=== PATIENT | female | born 1990 | race Caucasian/White ===

== ENCOUNTER → 2020-06-07 02:23 | Observation (INO) | END | disposition home or self-care (01) | LOC: 1NENULAB | PROVIDERS: ADMIT Obstetrics & Gynecology; ATTEND Obstetrics & Gynecology ==

== ENCOUNTER → 2020-06-10 12:40 | Observation (INO) ==
[2020-06-10] MEDS: Ringers Solution, Lactated 1,000 ML IVC ONE ×2 (08:50→11:05)
[~2020-06-10 12:40] MED LIST: *HR* Nalbuphine 10 MG/ML AMPUL IM PRN; *HR* Promethazine 25 MG/ML VIAL IM ONE; Ringers Solution, Lactated 1,000 ML ONE; Terconazole Vag CRM 20 GM TUBE VG SCH
== END | disposition home or self-care (01) ==
LOC: 1NENULAB
PROVIDERS: ADMIT Advanced Practice Midwife; ATTEND Advanced Practice Midwife

== ENCOUNTER 2020-06-10 19:45 | Inpatient (IN) ==
[~2020-06-10 19:45] MED LIST changes: -*HR* Nalbuphine 10 MG/ML AMPUL IM PRN; +*HR* Nalbuphine 10 MG/ML AMPUL IV PRN; -*HR* Promethazine 25 MG/ML VIAL IM ONE; +Azithromycin 500 MG in 0.9 % Sodium Chloride 250 ML IVPB ONE; +Famotidine 20 MG/2 ML VIAL IVP PRN; +Lidocaine 1% 20 ML MDV INFILT PRN; +Metoclopramide 10 MG/2 ML VIAL IVP PRN; +Naloxone 0.4 MG/ML INJ IVP PRN; +Ondansetron 4 MG/2 ML VIAL IVP PRN; +Ringers Solution, Lactated 1,000 ML IVC SCH; -Ringers Solution, Lactated 1,000 ML ONE; -Terconazole Vag CRM 20 GM TUBE VG SCH
[2020-06-10 21:10] LABS: Basophils # 0.1 K/mcL (0.0-0.2); Basophils % 0.3 %; Eosinophils % 0.1 %; Hematocrit 39.5 % (35.3-44.9); Hemoglobin 13.3 g/dL (11.5-15.4); Immature Granulocytes % 0.4 % (0-4); Lymphocytes # 2.9 K/mcL (0.6-4.6); Lymphocytes % 14.3 %; Mean Corpuscular HGB Conc 33.7 g/dL (31.6-35.5); Mean Corpuscular Hemoglobin 30.9 pg (28.0-33.3); Mean Corpuscular Volume 91.9 fL (83.0-100.0); Mean Platelet Volume 10.9 fL (9.4-12.4); Monocytes # 1.7 K/mcL (0.0-1.3); Monocytes % 8.6 %; Neutrophils # 15.3 K/mcL (1.6-8.9); Platelet Count 309 K/mcL (140-400); Red Cell Distribution Width 13.8 % (11.5-14.5); Segmented Neutrophils % 76.3 %
[2020-06-10 21:15] LABS: Amphetamine Screen,Urine Negative ng/mL (Cutoff=1000); Barbiturate Screen,Urine Negative ng/mL (Cutoff=200); Benzodiazepines Screen,Urine Negative ng/mL (Cutoff=200); Cannabinoid Screen,Urine Negative ng/mL (Cutoff = 50); Cocaine Screen,Urine Negative ng/mL (Cutoff= 300); Opiate Screen,Urine Negative ng/mL (Cutoff=300); Phencyclidine Screen,Urine Negative ng/mL (Cutoff=25)
[2020-06-10 22:06] LABS: Adenovirus Not Detected (Not Detect); Bordetella Pertussis Not Detected (Not Detect); Chlamydophila pneumoniae Not Detected (Not Detect); Coronavirus 229E Not Detected (Not Detect); Coronavirus HKU1 Not Detected (Not Detect); Coronavirus NL63 Not Detected (Not Detect); Coronavirus OC43 Not Detected (Not Detect); Human Metapneumovirus Not Detected (Not Detect); Human Rhinovirus/Enterovirus Not Detected (Not Detect); Influenza A Subtype 2009 H1 Not Detected (Not Detect); Influenza B Not Detected (Not Detect); Mycoplasma pneumoniae Not Detected (Not Detect); Parainfluenza Virus 1 Not Detected (Not Detect); Parainfluenza Virus 2 Not Detected (Not Detect); Parainfluenza Virus 3 Not Detected (Not Detect); Parainfluenza Virus 4 Not Detected (Not Detect); Respiratory Syncytial Virus Not Detected (Not Detect); SARS-CoV-2 Not Detected (Not Detect)
[2020-06-11] MEDS ORDERED: *HR* FentaNYL (PF) 100 MCG/2 ML VIAL ONE (01:57)
[2020-06-11] MEDS ORDERED: EPHEDrine 50 MG/ML VIAL IVP PRN (03:22)
[2020-06-11] MEDS ORDERED: *HR* FentaNYL (PF) 100 MCG/2 ML VIAL EP ONE (03:22)
[2020-06-11] MEDS ORDERED: Ropivacaine/PF 0.2% 20 ML VIAL EP ONE (03:22)
[2020-06-11] MEDS ORDERED: Oxytocin 20 units/ LR 1000 mL 20 UNIT/1,000 ML BAG IVC ONE (03:28)
[2020-06-11] MEDS ORDERED: Epidural Premix (fent/bupiv) 110 ML EP SCH (03:30)
[2020-06-11] MEDS ORDERED: NON-FORMULARY MEDICATION 1 EACH EACH (Pnv No.95/Ferrous Fum/Folic Ac [Prenatal Caplet] 1 E PO SCH (09:58)
[2020-06-11] MEDS ORDERED: Rho Immune Globulin 1,500 UNIT SYRINGE IM PRN (09:58)
[2020-06-11] MEDS ORDERED: Measles/Mumps/Rubella Vacc 0.5 ML VIAL SQ PRN (09:58)
[2020-06-11] MEDS ORDERED: Benzocaine/Menthol 56 GM AEROSOL SPRAY TP PRN (09:58)
[2020-06-11] MEDS ORDERED: Sennosides 8.6 MG TABLET PO PRN (09:58)
[2020-06-11] MEDS ORDERED: Oxytocin 20 units/ LR 1000 mL 20 UNIT/1,000 ML BAG IVC SCH (09:58)
[2020-06-11] MEDS ORDERED: Lanolin 7 G OINT...G. TP PRN (09:58)
[2020-06-11] MEDS: Acetaminophen 325 MG TABLET PO SCH ×2 (11:30→17:48)
[2020-06-11] MEDS: Ibuprofen 600 MG TABLET PO SCH ×2 (11:31→17:49)
[2020-06-11] MEDS: Prenatal Vit/FA 1 EACH TABLET PO SCH (11:51)
[2020-06-11] MEDS ORDERED: GENTIAN VIOLET TP ONE (15:52)
[2020-06-11] MEDS: Fluconazole 150 MG TABLET PO SCH (16:59)
[2020-06-11] MEDS ORDERED: Famotidine 20 MG TABLET PO PRN (21:00)
[2020-06-12] MEDS: Ibuprofen 600 MG TABLET PO SCH ×3 (00:42→12:05)
[2020-06-12] MEDS: Acetaminophen 325 MG TABLET PO SCH ×3 (00:43→12:05)
[2020-06-12 05:13] LABS: Basophils % 0.3 %; Eosinophils # 0.2 K/mcL (0.0-0.6); Eosinophils % 1.5 %; Hematocrit 32.7 % (35.3-44.9); Immature Granulocytes % 0.6 % (0-4); Lymphocytes # 3.5 K/mcL (0.6-4.6); Lymphocytes % 22.3 %; Mean Corpuscular Hemoglobin 31.2 pg (28.0-33.3); Mean Corpuscular Volume 94.5 fL (83.0-100.0); Mean Platelet Volume 10.7 fL (9.4-12.4); Monocytes # 1.7 K/mcL (0.0-1.3); Monocytes % 10.8 %; Platelet Count 252 K/mcL (140-400); Red Blood Count 3.46 M/mcL (3.82-4.97); Red Cell Distribution Width 13.8 % (11.5-14.5); Segmented Neutrophils % 64.5 %; White Blood Count 15.5 K/mcL (4.3-11.1)
[2020-06-12 05:14] LABS: Hemoglobin 10.8 g/dL (11.5-15.4)
[2020-06-12 08:20] VITALS: BP 105/61
[2020-06-12] MEDS: Fluconazole 150 MG TABLET PO SCH (09:16)
[2020-06-12] MEDS: Prenatal Vit/FA 1 EACH TABLET PO SCH (09:16)
== END 2020-06-12 14:28 | disposition home or self-care (01) | DRG 807 ==
LOC: 1NENULAB → 1NENUOBS 06-11 09:32
PROVIDERS: ADMIT Advanced Practice Midwife; ATTEND Advanced Practice Midwife